=== PATIENT | male | born 2000 | race Caucasian/White ===

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

== ENCOUNTER 2023-05-12 19:41 | Emergency (ER) | payer MEDICAID ==
[~2023-05-12] VITALS: Ht 170.2 cm; Wt 110.0 kg
[2023-05-12 20:33] LABS: BASOPHILS % (AUTO) 0 % (0-10); EOSINOPHILS # (AUTO) 0.2 10^3/uL (0.0-0.3); EOSINOPHILS % (AUTO) 3 % (0-10); HEMATOCRIT 46 % (40-54); HEMOGLOBIN 15.9 g/dL (13.3-17.7); LYMPHOCYTES # (AUTO) 1.6 10^3/uL (1.0-4.0); LYMPHOCYTES % (AUTO) 23 % (12-44); MEAN CORPUSCULAR HEMOGLOBIN 29 pg (25-34); MEAN CORPUSCULAR HGB CONC 34 g/dL (32-36); MEAN CORPUSCULAR VOLUME 85 fL (80-99); MONOCYTES # (AUTO) 0.3 10^3/uL (0.0-1.0); MONOCYTES % (AUTO) 5 % (0-12); NEUTROPHILS # (AUTO) 4.8 10^3/uL (1.8-7.8); NEUTROPHILS % (AUTO) 69 % (42-75); PLATELET COUNT 255 10^3/uL (130-400)
--- NOTE | 2023-05-12 20:36 | ED Psychosocial ---
General Chief Complaint: Psych/Social Disorder Stated Complaint: OVERDOSE Source: patient Exam Limitations: no limitations (RAUDEL RAY APRN) History of Present Illness Date Seen by Provider: May 12, 2023 Time Seen by Provider: 20:12 Initial Comments 22-year-old male presents to the ER via EMS after an overdose on 15 tablets of allopurinol 100 mg. He took them around 5 PM. He reports that he had approximately 5-6 episodes of vomiting approximately 1 hour after taking the medication. He denies any abdominal pain. He reports that he became suicidal because he is missing his father. States that his father is . States that he is currently less suicidal and he regrets overdosing. He states that he does not want to . Reports that he called EMS because he wants help. 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 He does not have any family locally. States that currently he does not have any plans he is looking forward to. He denies homicidal ideation. He used to see a psychiatrist, but no longer sees one. He does not have a primary care provider. He states he drinks approximately 4 beers a day. Denies drug or tobacco use. Denies chest pain, shortness of air, abdominal pain, diarrhea. Only past medical history is gout. (RAUDEL RAY APRN) Allergies and Home Medications Allergies Coded Allergies: latex (Unverified Allergy, Mild, 10/26/08) Uncoded Allergies: SNUGGLES SHEETS (Allergy, Unknown, 08/20/16) dryer sheets Patient Home Medication List Home Medication List Reviewed: Yes (RAUDEL RAY APRN) Amitriptyline HCl (Amitriptyline HCl) 25 Mg Tablet, 25 MG PO HS, (Reported) Entered as Reported by: ELISE MCCAULEY on 09/27/16 0866 Review of Systems Constitutional: see HPI (RAUDEL RAY APRN) Past Ayqyzuh-Ibhapd-Mhsqdb Hx Immunizations Up To Date Tetanus Booster (TDap): Unknown PED Vaccines UTD: Yes (RAUDEL RAY APRN) Seasonal Allergies Seasonal Allergies: No (RAUDEL RAY APRN) Past Medical History Surgeries: Yes Ear Surgery Respiratory: No Cardiac: No Neurological: Yes (08/18/16) Concussion Reproductive Disorders: No Sexually Transmitted Disease: No HIV/AIDS: No Genitourinary: No Gastrointestinal: No Musculoskeletal: No Endocrine: No HEENT: No Cancer: No Psychosocial: No Integumentary: No Blood Disorders: No (RAUDEL RAY APRN) Family Medical History Heart Disease (RAUDEL RAY APRN) Physical Exam Vital Signs - First Documented 05/12/23 19:45 Temp 36.7 Pulse 92 Resp 16 B/P (MAP) 152/81 (104) Pulse Ox 97 O2 Delivery Room Air (DREW VANCE MD) Capillary Refill : (RAUDEL RAY APRN) Height, Weight, BMI Height: 5'7.00" Weight: 238lbs. 0.0oz. 107.850148el; 35.15 BMI Method:Stated General Appearance: WD/WN, no apparent distress Neck: supple, normal inspection Respiratory: lungs clear, normal breath sounds, no respiratory distress, no accessory muscle use Cardiovascular: regular rate, rhythm Extremities: normal range of motion, normal inspection Neurologic/Psychiatric: alert, normal mood/affect Appearance/Memory: appropriate appearance, appropriate insight, neat Behavior/Eye Contact: cooperative, good eye contact, normal speech Thoughts/Hallucinations: normal thought pattern, no apparent hallucination Skin: normal color, warm/dry (RAUDEL RAY APRN) Progress/Results/Core Measures Results/Orders Lab Results Laboratory Tests Test 05/12/23 19:48 05/12/23 20:09 Range/Units Urine Color ORANGE Urine Clarity CLEAR Urine pH 6.0 5-9 Urine Specific [place] >=1.030 1.016-1.022 Urine Protein 1+ H NEGATIVE Urine Glucose (UA) NEGATIVE NEGATIVE Urine Ketones 3+ H NEGATIVE Urine Nitrite NEGATIVE NEGATIVE Urine Bilirubin 2+ H NEGATIVE Urine Urobilinogen 2.0 < = 1.0 MG/DL Urine Leukocyte Esterase NEGATIVE NEGATIVE Urine RBC (Auto) NEGATIVE NEGATIVE Urine RBC NONE /HPF Urine WBC 0-2 /HPF Urine Squamous Epithelial Cells NONE /HPF Urine Crystals NONE /LPF Urine Bacteria TRACE /HPF Urine Casts NONE /LPF Urine Mucus LARGE H /LPF Urine Other MOD SPERM H /HPF Urine Culture Indicated NO Urine Opiates Screen NEGATIVE NEGATIVE Urine Oxycodone Screen NEGATIVE NEGATIVE Urine Methadone Screen NEGATIVE NEGATIVE Urine Barbiturates Screen NEGATIVE NEGATIVE Ur Tricyclic Antidepressants Screen NEGATIVE NEGATIVE Urine Phencyclidine Screen NEGATIVE NEGATIVE Urine Amphetamines Screen NEGATIVE NEGATIVE Urine Methamphetamines Screen NEGATIVE NEGATIVE Urine Benzodiazepines Screen NEGATIVE NEGATIVE Urine Cocaine Screen NEGATIVE NEGATIVE Urine Cannabinoids Screen NEGATIVE NEGATIVE White Blood Count 7.0 4.3-11.0 10^3/uL Red Blood Count 5.46 4.30-5.52 10^6/uL Hemoglobin 15.9 13.3-17.7 g/dL Hematocrit 46 40-54 % Mean Corpuscular Volume 85 80-99 fL Mean Corpuscular Hemoglobin 29 25-34 pg Mean Corpuscular Hemoglobin Concent 34 32-36 g/dL Red Cell Distribution Width 12.4 10.0-14.5 % Platelet Count 255 130-400 10^3/uL Mean Platelet Volume 11.0 9.0-12.2 fL Immature Granulocyte % (Auto) 0 % Neutrophils (%) (Auto) 69 42-75 % Lymphocytes (%) (Auto) 23 12-44 % Monocytes (%) (Auto) 5 0-12 % Eosinophils (%) (Auto) 3 0-10 % Basophils (%) (Auto) 0 0-10 % Neutrophils # (Auto) 4.8 1.8-7.8 10^3/uL Lymphocytes # (Auto) 1.6 1.0-4.0 10^3/uL Monocytes # (Auto) 0.3 0.0-1.0 10^3/uL Eosinophils # (Auto) 0.2 0.0-0.3 10^3/uL Basophils # (Auto) 0.0 0.0-0.1 10^3/uL Immature Granulocyte # (Auto) 0.0 0.0-0.1 10^3/uL Sodium Level 138 135-145 MMOL/L Potassium Level 4.1 3.6-5.0 MMOL/L Chloride Level 101 98-107 MMOL/L Carbon Dioxide Level 19 L 21-32 MMOL/L Anion Gap 18 H 5-14 MMOL/L Blood Urea Nitrogen 12 7-18 MG/DL Creatinine 0.96 0.60-1.30 MG/DL Estimat Glomerular Filtration Rate 114 BUN/Creatinine Ratio 13 Glucose Level 66 L 70-105 MG/DL Calcium Level 9.7 8.5-10.1 MG/DL Corrected Calcium 9.3 8.5-10.1 MG/DL Total Bilirubin 0.9 0.1-1.0 MG/DL Aspartate Amino Transf (AST/SGOT) 14 5-34 U/L Alanine Aminotransferase (ALT/SGPT) 13 0-55 U/L Alkaline Phosphatase 77 40-136 U/L Total Protein 8.1 6.4-8.2 GM/DL Albumin 4.5 3.2-4.5 GM/DL TSH Pepin Testing 1.60 0.35-4.94 UIU/ML Salicylates Level < 5.0 L 5.0-20.0 MG/DL Acetaminophen Level < 10 L 10-30 UG/ML Serum Alcohol < 10 <10 MG/DL SARS-CoV-2 RNA (RT-PCR) Not Detected Not Detecte (DREW VANCE MD) My Orders Orders - DREW VANCE MD Ekg Tracing (05/12/23 19:46) (DREW VANCE MD) Vital Signs/I&O 05/12/23 19:45 Temp 36.7 Pulse 92 Resp 16 B/P (MAP) 152/81 (104) Pulse Ox 97 O2 Delivery Room Air (DREW VANCE MD) Progress Progress Note : Progress Note Patient seen and evaluated, resting comfortably in bed, no acute distress. Based on exam and symptoms, workup initiated including CBC, CMP, alcohol level, salicylate level, Tylenol level, urine drug screen, analysis, thyroid analyzer, COVID swab, EKG. Patient placed on 15-minute observation. Patient has been changed into paper scrubs. Poison control has been contacted, they state patient needs to be monitored for 6 hours post-ingestion which would be 11 PM. They report care is only symptomatic. 2121 Labs reviewed. CBC grossly normal. CMP shows slight decrease CO2 19, s lightly elevated anion gap of 18, glucose decreased 66. Urinalysis shows 1+ protein, 3+ ketones, 2+ bilirubin. Urine drug screen negative. Salicylate negative, Tylenol negative, serum alcohol negative. COVID-negative. TSH analyzer pending. Food tray ordered for patient. Patient reports he has not eaten today. Patient handed off to Dr. Vance, ER physician, at this time. (RAUDEL RAY APRN) Progress Note : Time: 05:59 Progress Note Patient has been resting comfortably throughout his stay in the emergency department. Medically cleared for psychiatric evaluation. Patient screened and is going to be placed for inpatient evaluation[facility]. Valdivia is the accepting provider. (DREW VANCE MD) Progress Note : Time: 12:01 Progress Note I was available to supervise this patient after shift change. Transfer had been arranged by Dr. Vance on [facility] [address]. Patient had no needs during the course of my care. He has now left the emergency room with Elisabeth Sullivan for transport [facility]. (DOMINICK ARROYO MD) Initial ECG Impression Date: May 12, 2023 Initial ECG Impression Time: 20:01 Initial ECG Rate: 70 Initial ECG Rhythm: Normal Sinus Initial ECG Intervals: Normal Initial ECG Impression: Normal Initial ECG Comparisson: Unchanged (RAUDEL RAY APRN) Departure Impression Primary Impression: Intentional overdose Qualified Codes: T50.902A - Poisoning by unspecified drugs, medicaments and biological substances, intentional self-harm, initial encounter Additional Impression: Suicidal ideation Disposition: 65 XFER TO PSYCH HOSP/UNIT Condition: Stable Transfer [facility] Medically Cleared for Xfer: Yes Transfer Reason: Exceeds level of care Time Spoke to Accepting Phy: 02:15 Transfer Progress Notes Accepted per Dr Valdivia Transfer Facility: [facility] Method of Transfer: Private Vehicle (DREW VANCE MD) Transfer Time: 12:01 (DOMINICK ARROYO MD) Departure-Patient Inst. Referrals: NO,LOCAL PHYSICIAN (PCP/Family) Primary Care Physician RAUDEL RAY APRN May 12, 2023 20:36 DREW VANCE MD May 13, 2023 06:00 DOMINICK ARROYO MD May 13, 2023 12:02
[2023-05-12 20:48] LABS: ALANINE AMINOTRANSFERASE 13 U/L (0-55); ALBUMIN 4.5 GM/DL (3.2-4.5); ALKALINE PHOSPHATASE 77 U/L (40-136); BILIRUBIN,TOTAL 0.9 MG/DL (0.1-1.0); BUN/CREATININE RATIO 13; CALCIUM 9.7 MG/DL (8.5-10.1); CARBON DIOXIDE 19 MMOL/L (21-32); CHLORIDE 101 MMOL/L (98-107); CREATININE SERUM 0.96 MG/DL (0.60-1.30); GFR ESTIMATED 114; GLUCOSE 66 MG/DL (70-105); POTASSIUM 4.1 MMOL/L (3.6-5.0); SALICYLATE < 5.0 MG/DL (5.0-20.0); SODIUM 138 MMOL/L (135-145); TOTAL PROTEIN 8.1 GM/DL (6.4-8.2)
[2023-05-12 20:51] LABS: BILIRUBIN,URINE 2+ (NEGATIVE); CLARITY,URINE CLEAR; COLOR,URINE ORANGE; GLUCOSE, URINE (UA) NEGATIVE (NEGATIVE); KETONES,URINE 3+ (NEGATIVE); LEUKOCYTE ESTERASE ,URINE NEGATIVE (NEGATIVE); NITRITE,URINE NEGATIVE (NEGATIVE); PROTEIN,URINE 1+ (NEGATIVE); URINE OTHER MOD SPERM /HPF
[2023-05-12 20:52] LABS: BACTERIA,URINE TRACE /HPF; WBC,URINE 0-2 /HPF
[2023-05-12 21:00] LABS: AMPHETAMINE SCREEN, URINE NEGATIVE (NEGATIVE); BARBITURATE SCREEN URINE NEGATIVE (NEGATIVE); CANNABINOID SCREEN, URINE NEGATIVE (NEGATIVE); COCAINE SCREEN URINE NEGATIVE (NEGATIVE); METHADONE STAT NEGATIVE (NEGATIVE); OPIATE SCREEN URINE NEGATIVE (NEGATIVE); OXYCODONE STAT NEGATIVE (NEGATIVE); TRICYCLIC ANTIDEPRESSANTS SCRE NEGATIVE (NEGATIVE)
[2023-05-12 21:15] LABS: ACETAMINOPHEN < 10 UG/ML (10-30)
[2023-05-13 12:00] VITALS: BP 119/66
== END 2023-05-13 11:59 ==
LOC: EDUNIT# 19:41 → ER 19:42
DX: T50.4X2A Poisoning by drugs affecting uric acid metabolism, intentional self-harm, initial encounter (principal); R73.09 Other abnormal glucose; Z91.040 Latex allergy status
CPT/HCPCS: 36415; 80053; 80306; 80320; 80329; 81000; 84443; 85025; 87636; 93005; 93041